=== PATIENT | female | born 1995 | race Caucasian/White ===

== ENCOUNTER 2021-04-21 13:07 | Emergency (ER) | payer SELFPAY ==
[~2021-04-21] VITALS: Ht 162.6 cm; Wt 100.2 kg
[2021-04-21 13:40] VITALS: BP 118/85
--- NOTE | 2021-04-21 15:36 | NUR ---
NA X 1
--- NOTE | 2021-04-21 16:53 | NUR ---
na x 2
--- NOTE | 2021-04-21 17:28 | NUR ---
NIL X 3
== END 2021-04-21 17:31 | disposition left against medical advice (07) ==
LOC: ED 13:12
DX: T81.30XA Disruption of wound, unspecified, initial encounter (principal)
CPT/HCPCS: 99281